=== PATIENT | male | born 1950 | race Caucasian/White ===

== ENCOUNTER 2024-08-30 00:55 | Emergency (ER) | payer MEDICARE, OTHER, SELFPAY ==
[2024-08-30 01:14] VITALS: BP 169/93
--- NOTE | 2024-08-30 05:14 | ED.GENMED ---
History of Present Illness
General
Chief Complaint: Musculo-Skeletal Complaint
Source: patient
Exam Limitations: none
Time Seen by Provider: 08/30/24 04:24
Nursing documentation reviewed up to this point in time: agreed with
History of Present Illness
History of Present Illness:
Patient presents to ED secondary to increased right ankle and foot swelling along with bruising. Of note, patient tripped and fell onto his right nelson 9 days ago. Patient who currently takes Brilinta, reports significant pain and swelling
initially, which now has improved with ice application. 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 Afterwards, he noticed increased foot swelling with bruising. Denies new trauma. Denies
shortness of breath. Denies loss of sensation or weakness.
Past History
Past History
ED Past Medical History: CAD, Cancer, GERD, HTN, Hypercholesterolemia, NIDDM, Other and Other
ED Past Surgical History: Cardiac and Other
Social History
Tobacco: Non-smoker
Alcohol: None
Personal:
Living: with family
Employment: Retired
Family History
Family History: Hypertension
Review of Systems
Review of Systems
Allergies reviewed?: Yes
All Other Systems: ROS reviewed and negative except as documented in HPI and ROS
Constitutional: Reports no symptoms
EENT: Reports no symptoms
Respiratory: Reports no symptoms; Denies trouble breathing
Cardiac: Reports no symptoms; Denies chest pain
Musculoskeletal: Reports edema
Skin: Reports other (bruising)
Neurological: Reports no symptoms
Phy Exam
Physical Exam
Physical Exam:
Physical Exam
General: no apparent distress, not acutely ill. afebrile
Head: nc/at. eomi
Neck: supple. normal range of motion
Neuro: alert and oriented. no focal neurological deficits
Skin: no rash
Psychiatric: well kept. interactive and cooperative
Extremities: RLE: an approx 1cm area of swelling noted over right anterior nelson without associated erythema/ecchymosis. mild right ankle/foot swelling with ecchymosis noted over MTP, without tenderness. DPP noted. cap refill
< 2 sec.
Course
Orders/Labs/Results
Orders:
Orders
08/30/24 01:23
US Legs, Right [US Periph Venous LOWER Ext RT] Urgent
Comment:
Reason For Exam: R leg swelling
Vital Signs
Initial and Last Documented VS:
Initial Vital Signs
Temp Pulse Resp BP Pulse Ox
97.9 F 62 16 169/93 98
08/30/24 01:14 08/30/24 01:14 08/30/24 01:14 08/30/24 01:14 08/30/24 01:14
Last Documented Vital Signs
Temp Pulse Resp BP Pulse Ox
97.9 F 82 17 156/78 97
08/30/24 01:14 08/30/24 05:38 08/30/24 05:38 08/30/24 05:38 08/30/24 05:38
MDM/Problems Addressed
MDM/Problems Addressed:
US LE: no DVT.
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
*Critical Care Note
Total Time (30-74mins, 75-104mins- exclusive of procedures): Not Applicable
ED Attending Note
-
Portions of this chart may have been created with voice recognition software.� Occasional wrong word or��sound alike� substitutions may have occurred due to the inherent limitations of voice recognition software.
Discharge Plan
Departure
Patient Disposition: Home (Routine Discharge)
Date of Disposition: 08/30/24
Time of Disposition: 05:28
Patient with high blood pressure during this ER visit?: Yes
Discharge Problem:
Contusion of leg
Instructions: Contusion (DC)
Prescriptions:
No Action
pantoprazole 40 MG tablet,delayed release (DR/EC)
40 mg PO BID Qty: 60 0RF
sucralfate [Carafate] 1 GM/10 ML suspension
1 gm PO QIDPRN PRN (Reason: acid reflux) Qty: 560 0RF
Referrals:
UNKNOWN - PT DOES,NOT KNOW [Family Provider] -
Activity Restrictions/Additional Instructions:
As discussed, please follow-up with your primary care physician with any further concerns. In ED, ultrasound did not reveal any abnormal findings.
Interventions
Interventions:
*Risk Screen - Suicide Last Done: 08/30/24 01:14
*General Assessment Last Done: 08/30/24 05:37
*Neglect/Abuse Screening Last Done: 08/30/24 05:37
ED- Fall Risk Assessment Last Done: 08/30/24 05:36
*ED COVID-19 Vaccine History Last Done: 08/30/24 05:37
*Nursing Disposition Last Done: 08/30/24 05:38
ED-Musculoskeletal Assessment Last Done: 08/30/24 05:36
Discharge Date and Time
Discharge Date/Time: 08/30/24 05:38
Print Language: INDONESIAN
[2024-08-30 05:38] VITALS: BP 156/78
== END 2024-08-30 05:38 | disposition home or self-care (01) ==
LOC: EMR 00:55
PROVIDERS: EMERGENCY PHYSICIAN Emergency Medicine
DX: S80.11XA Contusion of right lower leg, initial encounter (principal); R22.41 Localized swelling, mass and lump, right lower limb; W01.0XXA Fall on same level from slipping, tripping and stumbling without subsequent striking against object, initial encounter; I25.10 Atherosclerotic heart disease of native coronary artery without angina pectoris; K21.9 Gastro-esophageal reflux disease without esophagitis; I10 Essential (primary) hypertension; E78.00 Pure hypercholesterolemia, unspecified; E11.9 Type 2 diabetes mellitus without complications; Z82.49 Family history of ischemic heart disease and other diseases of the circulatory system
CPT/HCPCS: 99284; 93971